=== PATIENT | female | born 1960 | race Caucasian/White ===

== ENCOUNTER → 2021-11-02 | Outpatient (CLI) | payer BC ==
--- NOTE | 2021-11-02 18:31 | CA ---
Transthoracic Echo Report Name: Jessica Banks Age: 61 Gender: F : 1960 Exam Date: 11/02/2021 13:09 Exam Location: [facility] Ht (in): 64 Wt (lb): 163 Ordering Physician: Deandre Montague MD Attending/Referring Phys: Pool Servicer Estrella Sena RDCS Procedure CPT: Indications: Z01.818 ENCOUNTER FOR OTHER PREPROCEDURAL EXAMINAT Cardiac Hx: Technical Quality: Good Contrast 1: Total Dose (mL): Contrast 2: Total Dose (mL): MEASUREMENTS (Male / Female) Normal Values 2D ECHO LV Diastolic Diameter PLAX 3.6 cm 4.2 - 5.9 / 3.9 - 5.3 cm LV Systolic Diameter PLAX 2.0 cm IVS Diastolic Thickness 1.4 cm 0.6 - 1.0 / 0.6 - 0.9 cm LVPW Diastolic Thickness 1.2 cm 0.6 - 1.0 / 0.6 - 0.9 cm LV Relative Wall Thickness 0.7 RV Internal Dim ED PLAX 2.6 cm LA Volume 39.0 cm??? 18 - 58 / 22 - 52 cm??? M-MODE Aortic Root Diameter MM 3.4 cm LA Systolic Diameter MM 2.9 cm LA Ao Ratio MM 0.9 MV E Point Septal Separation 0.6 cm AV Cusp Separation MM 2.3 cm DOPPLER AV Peak Velocity 113.6 cm/s AV Peak Gradient 5.2 mmHg AI Peak Velocity 366.1 cm/s AI Peak Gradient 53.6 mmHg AI Pressure Half Time 440.3 ms MV Area PHT 3.4 cm??? MR Peak Velocity 240.6 cm/s MR Peak Gradient 23.2 mmHg Mitral E Point Velocity 79.9 cm/s Mitral A Point Velocity 84.2 cm/s Mitral E to A Ratio 0.9 MV Deceleration Time 223.2 ms MV E' Velocity 6.9 cm/s Mitral E to MV E' Ratio 11.6 TR Peak Velocity 155.5 cm/s TR Peak Gradient 9.7 mmHg Right Ventricular Systolic Press 14.0 mmHg FINDINGS Left Ventricle Moderately increased septal wall thickness. Mildly increased posterior wall thickness. Left ventricular ejection fraction is estimated at 55-60 %. Left ventricular cavity size normal. Right Ventricle Normal right ventricular size and function. Right Atrium The right atrium is normal in size. Left Atrium The left atrium is normal in size. Mitral Valve Structurally normal mitral valve without significant stenosis or prolapse. There is trace mitral regurgitation. Aortic Valve Structurally normal aortic valve without significant sclerosis or stenosis. There is mild aortic regurgitation. Tricuspid Valve Structurally normal tricuspid valve without significant stenosis. Pulmonary artery systolic pressure is normal. Trace tricuspid regurgitation. Pulmonic Valve Structurally normal pulmonic valve without significant stenosis. There is no pulmonic regurgitation. Pericardium Normal pericardium without effusion. Aorta Normal aortic root dimension. CONCLUSIONS Normal left ventricular dimension and systolic function Previewed by: Dr. Silvino Mendez MD (Electronically Signed) Final Date: 02 Nov 2021 18:29
== END | disposition home or self-care (01) ==
LOC: RADECHMAIN 13:02
PROVIDERS: ATTEND Internal Medicine Hematology & Oncology
DX: Z01.818 Encounter for other preprocedural examination (principal); I08.3 Combined rheumatic disorders of mitral, aortic and tricuspid valves
CPT/HCPCS: 93306

== ENCOUNTER 2021-12-17 07:53 | Day surgery (SDC) | payer BC ==
[2021-12-12 11:39] VITALS: BMI 26.6
[~2021-12-17 07:53] MED LIST: ACETAMINOPHEN TAB 500 MG TAB PO PRN; DEXAMETHASONE SOD PHOSPHATE 4 MG/ML 1 ML VIAL IV ONE; HEPARIN SODIUM,PORCINE/PF 5,000 UNIT/0.5 ML SYRINGE SQ PRN; HYDROmorphone 0.5 MG/0.5 ML SYRINGE IVP PRN; LACTATED RINGERS 1,000 ML IV SCH; MIDAZOLAM 2 MG/2 ML VIAL IV PRN; ONDANSETRON 4 MG/2 ML VIAL IVP ONE; Pre Op ABX Message 1 EACH MISC MISCELLANE ONE; SCOPOLAMINE 1 MG/72 HR PATCH TRANSDERM ONE
--- NOTE | 2021-12-17 08:34 | P.GSHP ---
History of Present Illness H&P Date: 12/17/21 Chief Complaint: Right breast cancer 61-year-old female diagnosed previously with right-sided breast cancer. Patient is seeing oncology. Plans are for chemotherapy. For that reason patient is requiring a Port-A-Cath to be placed. Past Medical History Past Medical History: Cancer Additional Past Medical History / Comment(s): RIGHT BREAST CANCER, History of Any Multi-Drug Resistant Organisms: None Reported Past Surgical History: Adenoidectomy, Breast Surgery, Cholecystectomy, Hernia Repair, Tonsillectomy Additional Past Surgical History / Comment(s): RIGHT BIOPSY Past Anesthesia/Blood Transfusion Reactions: Previous Problems w/ Anesthesia, Motion Sickness, Postoperative Nausea & Vomiting (PONV) Additional Past Anesthesia/Blood Transfusion Reaction / Comment(s): O2 LEVEL DROPPED DURING CHOLECYSTECTOMY" Smoking Status: Never smoker - Past Family History Father Family Medical History: Cancer Sister(s) Family Medical History: Cancer Additional Family Medical History / Comment(s): BREAST CANCER Medications and Allergies Home Medications Medication Instructions Recorded Confirmed Type Acyclovir [Zovirax] 400 mg PO BID PRN 12/12/21 12/17/21 History Loperamide [Imodium] 2 mg PO BID PRN 12/12/21 12/17/21 History OLANZapine [ZyPREXA] 2.5 mg PO DAILY PRN 12/12/21 12/17/21 History Ondansetron [Zofran] 4 mg PO Q4HR PRN 12/12/21 12/17/21 History dexAMETHasone 4 mg PO DIRECTED PRN 12/12/21 12/17/21 History Allergies Allergy/AdvReac Type Severity Reaction Status Date / Time No Known Allergies Allergy Verified 12/12/21 10:50 Surgical - Exam Physical exam: General: Well-developed, well-nourished HEENT: Normocephalic, sclerae nonicteric Abdomen: Nontender, nondistended Extremities: No edema Neuro: Alert and oriented Assessment and Plan (1) Breast cancer Narrative/Plan: 61-year-old female with right-sided breast cancer. We'll proceed with Port-A-Cath placement at this time. Risks of bleeding, infection, DVT, pneumothorax, catheter malfunction, anesthesia related complications were discussed. The patient understands and wishes to proceed. Current Visit: Yes Status: Acute Code(s): C50.919 - MALIGNANT NEOPLASM OF UNSP SITE OF UNSPECIFIED FEMALE BREAST SNOMED Code(s): 375987900
[2021-12-17] MEDS ORDERED: LIDOCAINE 1% (10MG/ML) FOR IV START INTRADERMA ONE (08:46)
[2021-12-17] MEDS ORDERED: PROPOFOL 10 MG/ML 20 ML VIAL IV ONE (09:52)
[2021-12-17] MEDS ORDERED: LIDOCAINE 2% INJ 20 MG/ML (2 ML VIAL) ONE (09:52)
[2021-12-17] MEDS ORDERED: ceFAZolin 1,000 MG VIAL ONE (09:52)
[2021-12-17] MEDS ORDERED: MIDAZOLAM 2 MG/2 ML VIAL ONE (09:52)
[2021-12-17] MEDS ORDERED: PHENYLEPHRINE-0.9% NACL SYG 1,000 MCG/10 ML SYRINGE ONE (09:52)
[2021-12-17] MEDS ORDERED: fentaNYL (PF) 50 MCG/ML 2 ML AMP ONE (09:52)
[2021-12-17] MEDS ORDERED: HEPARIN SODIUM,PORCINE 100 UNIT/ML 5 ML VIAL IV ONE (10:25)
[2021-12-17] MEDS ORDERED: LIDOCAINE (PF) 10 MG/ML 2 ML VIAL SQ ONE ×4 (10:25)
[2021-12-17] MEDS ORDERED: NALOXONE 0.4 MG/ML 1 ML VIAL IV PRN (10:59)
[2021-12-17] MEDS ORDERED: traMADol 50 MG TAB PO PRN (10:59)
--- NOTE | 2021-12-17 11:01 | P.OP ---
Date of Procedure: 12/17/21 Procedure(s) Performed: PREOPERATIVE DIAGNOSIS: Right-sided breast cancer POSTOPERATIVE DIAGNOSIS: Same PROCEDURE: Port-A-Cath placement with fluoroscopic and ultrasound guidance SURGEON: Ginny EBL: 10 mL ANESTHESIA: General COMPLICATIONS: None OPERATIVE PROCEDURE: Patient was brought and placed on the operative table in the supine position. The patient was sedated per anesthesia that time. The chest and neck were prepped and draped in usual sterile fashion. The ultrasound probe was used to identify the location of the left internal jugular vein. The skin was localized with lidocaine. The Seldinger needle was advanced into the IJ under ultrasound guidance. The wire was advanced through the needle under fluoroscopic guidance into the superior vena cava. A port pocket was created in the left infraclavicular location. The catheter was tunneled from the wire entrance site to the port pocket. The port was then connected to the catheter. The dilator introducer was threaded over the guidewire. The guidewire and dilator were then removed. The catheter was advanced through the introducer and introducer was then removed. The tip was seen to be in the right atrial junction via fluoroscopy. A picture of the radiograph showing the tip at the radial digital junction was taken. Port was flushed with both saline and a Hep- Lock solution. There was good flow both in and out of the port. The port was sutured in underlying tissues using 3-0 silk sutures. The subcutaneous tissues were reapproximated using 3-0 Vicryl sutures and the skin at both locations using 4-0 Monocryl sutures. Skin glue and sterile dressings then applied. DISPOSITION: Stable to recovery room
[2021-12-17 11:07] VITALS: RESP 14; TEMP 96.8
--- NOTE | 2021-12-17 11:16 | FL ---
EXAMINATION TYPE: FL guided central line placemt HISTORY: Fluoroscopy time Impression: 1. Fluoroscopy support provided to the referring physician. 20 seconds provided
--- NOTE | 2021-12-17 11:23 | XR ---
EXAMINATION TYPE: XR chest 1V confirm line [facility] DATE OF EXAM: 12/17/2021 COMPARISON: NONE HISTORY: Check Line Placement. TECHNIQUE: Single frontal view of the chest is obtained. FINDINGS: There is no focal air space opacity, pleural effusion, or pneumothorax seen. The cardiac silhouette size is within normal limits. The osseous structures are intact. A Port-A-Cath is seen w ith tip overlying the SVC. No sizable pneumothorax. Metallic density adjacent to right rib cage. Surg ical clips gallbladder fossa. IMPRESSION: No acute process.
[2021-12-17 12:17] VITALS: BP 118/74; PULSE 83
== END 2021-12-17 12:59 | disposition home or self-care (01) ==
LOC: OR 07:53
PROVIDERS: ATTEND Surgery
DX: C50.211 Malignant neoplasm of upper-inner quadrant of right female breast (principal); Z20.822 Contact with and (suspected) exposure to COVID-19; Z90.49 Acquired absence of other specified parts of digestive tract; Z80.3 Family history of malignant neoplasm of breast
CPT/HCPCS: 87635; 77001; 36561; C1788; J2250; J2001 ×2; J1642; J1100; J2405; J0690; J3010; J2370; J2704; J1644

== ENCOUNTER → 2022-06-20 | Outpatient (CLI) | payer BC ==
--- NOTE | 2022-06-20 16:33 | BD ---
EXAMINATION TYPE: Axial Bone Density DATE OF EXAM: 06/20/2022 COMPARISON: NONE CLINICAL HISTORY: 62 years year old Female. ICD-10 CODE: C50.211 MALIG MALU OF UPPER INNER QUAD OF [facility] Height: 62.5 IN Weight: 168 LBS FRAX RISK QUESTIONS: History of Fracture in Adulthood: FINGER AGE 42; TOE AGE 30 RISK FACTORS HISTORY OF: Family History of Osteoporosis: YES MOTHER Active: YES Diet low in dairy products/other sources of calcium: YES Postmenopausal woman: AGE 56 MEDICATIONS: Additional Medications: NONE Additional History: BREAST CANCER WITH CHEMO AND RADIATION EXAM MEASUREMENTS: Bone mineral densitometry was performed using the [place] [facility]. Bone mineral density as measured about the Lumbar spine is: ----- L1-L4(G/cm2): 0.920 T Score Values are as follows: ----- L1: -2.7 ----- L2: -2.9 ----- L3: -2.0 ----- L4: -1.4 ----- L1-L4: -2.2 Bone mineral density BASELINE Bone mineral density about the R hip (g/cm2): 0.773 Bone mineral density about the L hip (g/cm2): 0.706 T Score values are as follows: -----R Neck: -1.9 -----L Neck: -2.4 -----R Total: -2.1 -----L Total: -2.0 Bone mineral density BASELINE FRAX%s: The graph provided illustrates a 19.1 chance for a major osteoporotic fx and a 3.5 chance for the hips probability for fx in 10 years time. IMPRESSION: Osteopenia (T Score between -2.5 and -1). There is slightly increased risk of fracture and the patient may be considered for treatment. Re-Screen 2-5 years. NOTE: T-SCORE=SD OF THE YOUNG ADULT MEAN.
== END | disposition home or self-care (01) ==
LOC: RADBDWWP 09:18
PROVIDERS: ATTEND Internal Medicine Hematology & Oncology
DX: C50.211 Malignant neoplasm of upper-inner quadrant of right female breast (principal); M81.0 Age-related osteoporosis without current pathological fracture; M85.89 Other specified disorders of bone density and structure, multiple sites; Z78.0 Asymptomatic menopausal state
CPT/HCPCS: 77080

== ENCOUNTER → 2022-10-25 | Outpatient (CLI) | payer BC ==
--- NOTE | 2022-10-26 13:47 | CA ---
Transthoracic Echo Report Name: Jessica Banks Age: 62 Gender: F : 1960 Exam Date: 10/25/2022 13:41 Exam Location: [facility] Ht (in): 65 Wt (lb): 172 Ordering Physician: Deandre Montague MD Attending/Referring Phys: Recreation Supervisor Chelo Leon RDCS Procedure CPT: Indications: C50.211 breast ca Cardiac Hx: Technical Quality: Good Contrast 1: Total Dose (mL): Contrast 2: Total Dose (mL): MEASUREMENTS (Male / Female) Normal Values 2D ECHO LV Diastolic Diameter PLAX 4.1 cm 4.2 - 5.9 / 3.9 - 5.3 cm LV Systolic Diameter PLAX 2.9 cm IVS Diastolic Thickness 1.0 cm 0.6 - 1.0 / 0.6 - 0.9 cm LVPW Diastolic Thickness 1.0 cm 0.6 - 1.0 / 0.6 - 0.9 cm LV Relative Wall Thickness 0.5 RV Internal Dim ED PLAX 3.3 cm LA Systolic Diameter LX 3.7 cm 3.0 - 4.0 / 2.7 - 3.8 cm LV Diastolic Volume MOD 4C 88.1 cm??? LV Systolic Volume MOD 4C 41.1 cm??? LV Ejection Fraction MOD 4C 53.4 % LV Diastolic Length 4C 8.0 cm LV Systolic Length 4C 6.7 cm LV Diastolic Volume MOD 2C 83.2 cm??? LV Systolic Volume MOD 2C 37.1 cm??? LV Ejection Fraction MOD 2C 55.5 % LV Diastolic Length 2C 7.4 cm LV Systolic Length 2C 5.8 cm LA Volume 49.5 cm??? 18 - 58 / 22 - 52 cm??? M-MODE Aortic Root Diameter MM 3.2 cm LA Systolic Diameter MM 2.2 cm LA Ao Ratio MM 0.7 DOPPLER AV Peak Velocity 123.2 cm/s AV Peak Gradient 6.1 mmHg AI Peak Velocity 304.4 cm/s AI Peak Gradient 37.1 mmHg AI Pressure Half Time 645.3 ms Mitral E Point Velocity 95.5 cm/s Mitral A Point Velocity 91.8 cm/s Mitral E to A Ratio 1.0 MV Deceleration Time 167.2 ms MV E' Velocity 6.2 cm/s Mitral E to MV E' Ratio 15.5 TR Peak Velocity 239.9 cm/s TR Peak Gradient 23.0 mmHg Right Ventricular Systolic Press 33.0 mmHg FINDINGS Left Ventricle Left ventricular ejection fraction is estimated at 50-55 %. Left ventricular cavity size normal. Left ventricular wall thickness normal. Right Ventricle Mild right ventricular dilatation. Right ventricular systolic pressure within normal limits. Right Atrium Normal right atrial size. Left Atrium Normal left atrial size. Mitral Valve Structurally normal mitral valve. Aortic Valve Trileaflet aortic valve. Mild aortic regurgitation. Tricuspid Valve Structurally normal tricuspid valve. Mild tricuspid regurgitation. Pulmonic Valve Structurally normal pulmonic valve. Trace pulmonic regurgitation. Pericardium Normal pericardium. No pericardial effusion. Aorta Normal size aortic root and proximal ascending aorta. CONCLUSIONS Normal LV function Mild aortic regurgitation Previewed by: Dr. Mikey Garza MD (Electronically Signed) Final Date: 26 Oct 2022 13:46
== END | disposition home or self-care (01) ==
LOC: RADECHMAIN 13:33
PROVIDERS: ATTEND Internal Medicine Hematology & Oncology
DX: C50.211 Malignant neoplasm of upper-inner quadrant of right female breast (principal); G62.2 Polyneuropathy due to other toxic agents; K58.9 Irritable bowel syndrome, unspecified; I35.0 Nonrheumatic aortic (valve) stenosis; Z84.81 Family history of carrier of genetic disease
CPT/HCPCS: 93306

== ENCOUNTER → 2023-07-25 | Outpatient (CLI) | payer BC ==
--- NOTE | 2023-07-25 16:14 | XR ---
EXAMINATION TYPE: XR shoulder complete RT, XR humerus RT DATE OF EXAM: 07/25/2023 11:29 AM CLINICAL INDICATION:Female, 63 years old with history of C50.211 MALIG NEOPLM OF UPPER-INNER QUADRANT OF [place]; COMPARISON: None TECHNIQUE: XR shoulder complete RT, XR humerus RT; examined in AP, internally rotated and scapular Y projections. Humerus was evaluated in frontal and lateral views. FINDINGS: No evidence of acute osseous pathology, joint dislocation, or soft tissue swelling. The remaining po rtions of the visualized chest are unremarkable. IMPRESSION: No acute osseous pathology.
== END | disposition home or self-care (01) ==
LOC: RADXRMAIN 11:05
PROVIDERS: ATTEND Radiology Radiation Oncology
DX: C50.211 Malignant neoplasm of upper-inner quadrant of right female breast (principal); Z15.01 Genetic susceptibility to malignant neoplasm of breast; Z17.0 Estrogen receptor positive status [ER+]

== ENCOUNTER → 2023-08-06 | Outpatient (CLI) | payer BC ==
--- NOTE | 2023-08-08 21:41 | MR ---
EXAMINATION: MR humerus RT w/wo con DATE OF EXAM: 08/06/2023 COMPARISON: Right shoulder and right humerus radiographs 07/25/2023 HISTORY: Right arm pain for 4 months, breast cancer TECHNIQUE: Multiplanar, multisequence images of the right humerus were acquired without and with cont rast. FINDINGS: BONES/MARROW: Normal bone marrow signal. SOFT TISSUES: Partially visualized intrasubstance tear of the intra-articular long head biceps tendon , no retraction. Partially visualized glenohumeral joint effusion.. No anatomic variant. No bursal di stention. No fluid collection. NEUROVASCULAR: Visualized neurovascular structures are normal. OTHER: No abnormal or masslike postcontrast enhancement. No mass. No lymphadenopathy. IMPRESSION: 1. Partially visualized intrasubstance tear the intra-articular long head biceps tendon and glenohume ral joint effusion. Correlate with symptomatology to determine need for right shoulder MRI. 2. Bone marrow and soft tissues. No abnormal/masslike enhancement.
== END | disposition home or self-care (01) ==
LOC: RADMRIMAIN 20:45
PROVIDERS: ATTEND Internal Medicine Hematology & Oncology
DX: C50.211 Malignant neoplasm of upper-inner quadrant of right female breast (principal)
CPT/HCPCS: 73220; A9585